=== PATIENT | female | born 1975 | race Caucasian/White ===

== ENCOUNTER 2018-05-08 11:25 | Emergency (ER) | payer MEDICARE, MEDICAID ==
[~2018-05-08] VITALS: Ht 160 cm; Wt 103.0 kg
[2018-05-08] MEDS ORDERED: LIDOcaine 4% (40 mg/ml) topical solution 50ml TP ONE (12:05)
[2018-05-08] MEDS ORDERED: oxymetazoline 15 ML nasal spray NS ONE (12:05)
[2018-05-08] MEDS ORDERED: tranexamic acid 100mg/ml inj. TP ONE (12:15)
[2018-05-08] MEDS ORDERED: AMOX-580 PO (13:43)
[2018-05-08 14:21] VITALS: BP 120/80
[2018-05-08 14:22] LABS: BASOPHILS # (AUTO) 0.2 X10'3 (0-0.2); BASOPHILS % (AUTO) 1.1 % (0-1); EOSINOPHILS # (AUTO) 0.2 X10'3 (0-0.9); EOSINOPHILS % (AUTO) 1.1 % (0-6); HEMATOCRIT 40.7 % (35.0-45.0); HEMOGLOBIN 13.9 g/dl (12.0-16.0); LYMPHOCYTES # (AUTO) 2.9 X10'3 (1.1-4.8); LYMPHOCYTES % (AUTO) 16.4 % (21-51); MEAN CORPUSCULAR HEMOGLOBIN 27.7 PG (27.0-31.0); MEAN CORPUSCULAR HGB CONC 34.2 % (33.0-36.5); MEAN CORPUSCULAR VOLUME 80.9 FL (78-98); MEAN PLATELET VOLUME 6.8 FL (7.4-10.4); MONOCYTES # (AUTO) 0.8 X10'3 (0-0.9); MONOCYTES % (AUTO) 4.7 % (2-12); NEUTROPHILS # (AUTO) 13.4 X10'3 (1.8-7.7); NEUTROPHILS % (AUTO) 76.7 % (42-75); PLATELET COUNT 494 X10'3 (140-440); RED BLOOD COUNT 5.03 X10'6 (4.20-5.60); RED CELL DISTRIBUTION WIDTH 16.1 % (11.5-14.5); WHITE BLOOD COUNT 17.5 X10'3 (4.5-11.0)
[2018-05-08 14:32] LABS: PARTIAL THROMBOPLASTIN TIME 24 SECONDS (22-32); PROTHROMBIN TIME 9.9 SECONDS (9.0-12.0)
[2018-05-08 15:36] LABS: TOTAL CELLS COUNTED 100
[2018-05-08 15:37] LABS: ANISOCYTOSIS 1+; PLATELET ESTIMATE INCREASED; POLYCHROMASIA 1+
== END 2018-05-08 15:07 | disposition home or self-care (01) ==
LOC: ER 11:26
DX: R04.0 Epistaxis (principal); Z79.2 Long term (current) use of antibiotics
CPT/HCPCS: 30901; 36415; 85025; 85610; 85730; 99284

== ENCOUNTER 2018-05-11 08:03 | Emergency (ER) | payer MEDICARE, MEDICAID ==
[~2018-05-11] VITALS: Ht 160 cm; Wt 102.5 kg
[~2018-05-11 08:03] MED LIST: AMOX-580 PO
[2018-05-11 08:08] VITALS: BP 147/92
== END 2018-05-11 08:59 | disposition home or self-care (01) ==
LOC: ER 08:04
DX: R04.0 Epistaxis (principal); Z79.899 Other long term (current) drug therapy
CPT/HCPCS: 99281